=== PATIENT | female | born 1965 | race Caucasian/White ===

== ENCOUNTER 2019-03-16 15:55 | Inpatient (IN) | payer MEDICAID ==
[~2019-03-16] VITALS: Ht 160 cm; Wt 61.2 kg
--- NOTE | 2019-03-16 16:06 | NUR ---
C/O NAUSEA, GUM BLEEDING x 3 DAYS AND PALPITATIONS, PT AAOX4, -SOB, NAD NOTED, PENDING MD MAI
[2019-03-16] MEDS ORDERED: LORAZEPAM INJ 2 MG/ML VIAL ONE (16:20)
[2019-03-16] MEDS ORDERED: ONDANSETRON HCL/PF 4 MG/2 ML VIAL ONE (16:20)
[2019-03-16 16:21] LABS: BASOPHILS % (AUTO) 0.1 % (0.0-2.0); EOSINOPHILS % (AUTO) 0.1 % (0.0-6.0); HEMATOCRIT 29 % (33-45); HEMOGLOBIN 9.8 g/dL (11.5-14.8); LYMPHOCYTES # (AUTO) 0.7 /CMM (0.8-4.8); MEAN CORPUSCULAR HGB CONC 34 g/dl (31.0-36.0); MEAN CORPUSCULAR VOLUME 101 fL (82-100); MONOCYTES # (AUTO) 0.5 /CMM (0.1-1.30); MONOCYTES % (AUTO) 4.5 % (2.0-12.0); NEUTROPHILS # (AUTO) 9.8 /CMM (1.8-8.9); NEUTROPHILS % (AUTO) 89.3 % (43.0-81.0); PLATELET COUNT (AUTO) 52 /CMM (150-450); RED BLOOD CELL COUNT(AUTO) 2.86 MIL/uL (4.0-5.2)
[2019-03-16 16:29] LABS: CALCIUM, SERUM 8.1 mg/dL (8.5-10.1); POTASSIUM 3.6 mmol/L (3.5-5.1)
[2019-03-16] MEDS ORDERED: ONDANSETRON HCL/PF 4 MG/2 ML VIAL IVP ONE (16:30)
[2019-03-16] MEDS ORDERED: IV NS 0.9% 1,000 ML BAG IV ONE (16:30)
[2019-03-16] MEDS ORDERED: LORAZEPAM INJ 2 MG/ML VIAL IV ONE (16:30)
[2019-03-16 16:35] LABS: BILIRUBIN,DIRECT 2.9 mg/dL (0.0-0.2); BILIRUBIN,TOTAL 5.3 mg/dL (0.2-1.0); TOTAL PROTEIN, SERUM 7.7 g/dL (6.4-8.2)
[2019-03-16 16:56] LABS: APPEARANCE,URINE Turbid (CLEAR); BILIRUBIN,URINE LARGE (NEGATIVE); BLOOD, URINE Trace-lysed Ery/uL (NEGATIVE); COLOR,URINE Amber (YELLOW); KETONES,URINE 40 (NEGATIVE); LEUKOCYTE ESTERASE ,URINE Negative (NEGATIVE); NITRITE, URINE Negative (NEGATIVE); PROTEIN,URINE 100 mg/dl (NEGATIVE); UGLUCOSE Negative (NEGATIVE)
--- NOTE | 2019-03-16 17:00 | NUR ---
PT TO CT
[2019-03-16 17:02] LABS: BACTERIA,URINE Few /HPF (None Seen); RBC,URINE 0-2 /HPF (0-2); SQUAMOUS EPITHELIAL CELL,UR Moderate /HPF (None Seen); WBC,URINE 0-2 /HPF (0-3)
[2019-03-16] MEDS ORDERED: IV NS 0.9% 250 ML IV ONE (17:07)
[2019-03-16] MEDS ORDERED: CT SWABBABLE VALVE TRANS SET 1 EA INFUS.SET MC ONE (17:07)
[2019-03-16] MEDS ORDERED: IOHEXOL-300 100 ML VIAL IV ONE (17:07)
[2019-03-16] MEDS ORDERED: hydrALAZINE HCL IV 20 MG VIAL ONE (17:32)
[2019-03-16 17:35] LABS: LYMPHOCYTES % (MANUAL) 7 % (16-48); MONOCYTES % (MANUAL) 1 % (0-11.0); NEUTROPHILS % (MANUAL) 92 (42-76)
[2019-03-16] MEDS ORDERED: PIPERACILLIN /TAZOBACTAM 3.375 G VIAL IV ONE (18:28)
[2019-03-16] MEDS ORDERED: PIPERACILLIN /TAZOBACTAM 3.375 G in IV D5W 50 ML IV ONE (18:30)
--- NOTE | 2019-03-16 18:57 | NUR ---
PAUL PRUITT AT BEDSIDE
[2019-03-16] MEDS ORDERED: ONDANSETRON HCL/PF 4 MG/2 ML VIAL IVP PRN (19:30)
[2019-03-16] MEDS ORDERED: MAGNESIUM HYDROXIDE 30 ML UDC PO PRN (19:30)
[2019-03-16] MEDS ORDERED: Z GUARD REMEDY 2 OZ OINT TP PRN (19:30)
[2019-03-16] MEDS ORDERED: MAG HYDROX/AL HYDROX/SIMETH 30 ML UDC PO PRN (19:30)
[2019-03-16] MEDS ORDERED: ACETAMINOPHEN 325 MG TABLET PO PRN (19:30)
[2019-03-16] MEDS ORDERED: HYDROCODONE/APAP 5/325MG 1 EACH TABLET PO PRN (19:30)
--- NOTE | 2019-03-16 20:05 | NUR ---
NURSING SUP GAVE BED 320-2.
[2019-03-16 20:30] VITALS: BP 117/54
[2019-03-16 20:35] VITALS: BP 117/54
--- NOTE | 2019-03-16 20:35 | NUR ---
SENIOR CONSTRUCTION ESTIMATORRESAW CARRIAGE OPERATOR NOTES Received patient from ER via [facility] accompanied by 2 ER staff. Admitted to Tele 320-2 due to acute colitis under the service of DEAN Marcelino. Assisted to bed comfortably, noted ambulatory with unsteady gait. Admission routine done. Patient refused to removed her leggings on, preferred to wear hospital gown over own's clothes. Patient denies any discomfort at this time. On tele monitor with Tachycardia noted. With bleeding on gums, with clots noted. Bedside wall suction set up. Kept on bed clean, dry and comfortable. Call light within easy reach. Kept on bed clean, dry and comfortable. Will continue to monitor accordingly.
--- NOTE | 2019-03-16 20:36 | NUR ---
REPORT GIVEN TO DHEERAJ JOSEPH FOR ANGELA TRANSPORTED TO 3RD FLOOR
[2019-03-16] MEDS: IV NS 0.9% 1,000 ML IV PRN (20:44)
[2019-03-17] VITALS: BP 107/45
[2019-03-17] MEDS ORDERED: PIPERACILLIN /TAZOBACTAM 3.375 G in IV D5W 50 ML IV SCH ×2
[2019-03-17] MEDS ORDERED: PIPERACILLIN /TAZOBACTAM 3.375 G VIAL IV ONE ×2 (00:28→05:03)
[2019-03-17] MEDS: PIPERACILLIN /TAZOBACTAM 3.375 G in IV D5W 50 ML IV SCH ×2 (00:34→05:16)
[2019-03-17] MEDS ORDERED: LORAZEPAM 0.5 MG TABLET PO PRN (01:00)
--- NOTE | 2019-03-17 03:01 | NUR ---
SSN/SSBN WEAPONS EQUIPMENT OPERATOR NOTES Urine sample collected for ordered labs. Called laboratory, spoke to Christopher. Sample stored accordingly.
[2019-03-17 04:00] VITALS: BP 91/45
--- NOTE | 2019-03-17 06:48 | NUR ---
FLIGHT AGENT CLOSING NOTES Patient intermittently asleep. Still with gum bleeding noted. Able to ambulate to bathroom with stand by assist provided. Able to perform ADLs independently. No nausea noted within the shift. All nursing needs attended, due meds given as ordered. Kept on bed clean, dry and comfortable. Call light within easy reach. On fall and aspiration precautions. Endorsed to the next shift.
--- NOTE | 2019-03-17 06:51 | NUR ---
POWER PLANT SUPERINTENDENT NOTES On tele monitor with sinus tachycardia noted. Patient denies any discomfort at this time.
--- NOTE | 2019-03-17 07:26 | NUR ---
FELT HAT MELLOWING MACHINE OPERATOR OPENING NOTES RECEIVED PT AWAKE IN BED IN NO ACUTE SIGNS OF DISTRESS. A/O X4. ABLE TO MAKE NEEDS KNOWN, DENIES PAIN OR ANY DISCOMFORTS AT THIS TIME. ON ROOM AIR, BREATHING EVEN AND UNLABORED. ON TELE-MONITORING WITH CURRENT READING OF ST WITH HR ON 140'S, NO C/O OF CARDIAC DISTRESS VOICED. PT FOR HIDA SCAN TODAY. IV ACCESS ON RAC G#20 INTACT AND PATENT WITH IVF OF NS INFUSING AT 75ML/HR, NO S/S OF INFILTRATIONS NOTED. BED IN LOW LOCKED POSITION WITH SR UP X2. CALL LIGHT WITHIN EASY REACH OF PT. WILL CONTINUE TO MONITOR PT ACCORDINGLY.
[2019-03-17] MEDS: PANTOPRAZOLE 40 MG VIAL IV SCH (07:55)
[2019-03-17 08:00] VITALS: BP 112/55
[2019-03-17 08:03] LABS: BASOPHILS % (AUTO) 0.1 % (0.0-2.0); EOSINOPHILS % (AUTO) 0.1 % (0.0-6.0); HEMATOCRIT 22 % (33-45); HEMOGLOBIN 7.5 g/dL (11.5-14.8); LYMPHOCYTES # (AUTO) 0.4 /CMM (0.8-4.8); LYMPHOCYTES % (AUTO) 5.1 % (20.0-44.0); MEAN CORPUSCULAR HGB CONC 34 g/dl (31.0-36.0); MEAN CORPUSCULAR VOLUME 100 fL (82-100); MONOCYTES # (AUTO) 0.4 /CMM (0.1-1.30); MONOCYTES % (AUTO) 5.7 % (2.0-12.0); NEUTROPHILS # (AUTO) 6.8 /CMM (1.8-8.9); RED BLOOD CELL COUNT(AUTO) 2.18 MIL/uL (4.0-5.2); WHITE BLOOD COUNT (AUTO) 7.6 K/uL (4.3-11.0)
[2019-03-17 08:07] LABS: PLATELET COUNT (AUTO) 37 /CMM (150-450)
[2019-03-17 08:20] LABS: CALCIUM, SERUM 7.9 mg/dL (8.5-10.1); CREATININE 1.1 mg/dL (0.6-1.3); PHOSPHORUS 1.9 mg/dL (2.5-4.9); POTASSIUM 3.4 mmol/L (3.5-5.1)
[2019-03-17 08:33] LABS: MAGNESIUM 1.2 mg/dL (1.8-2.4)
[2019-03-17 08:34] LABS: THYROID STIMULATING HORMONE 3.6 uIU/mL (0.358-3.74)
--- NOTE | 2019-03-17 08:48 | NUR ---
RN NOTES RECEIVED CALL FROM LAB [facility] ANIRUDH KENYON AND INFORMED THAT PT HAS CRITICAL LOW LEVEL PLATELET 37 AND THAT PT IS ALSO TACHYCARDIC WITH HR ON 140'S. DR HAY MADE AWARE WITH ORDER TO INFORMED DR GALLOWAY. DR GALLOWAY ON UNIT AND INFORMED, SAME INFORMED HIM THAT PT HAS LOW MG 1.2 AND K 3.4. AWAITING FOR NEW ORDERS. WILL CONTINUE TO MONITOR.
[2019-03-17 09:09] LABS: LYMPHOCYTES % (MANUAL) 8 % (16-48); MONOCYTES % (MANUAL) 1 % (0-11.0); NEUTROPHILS % (MANUAL) 91 (42-76)
[2019-03-17] MEDS: IV NS 0.9% 1,000 ML IV PRN (09:13)
[2019-03-17] MEDS: Magnesium 1GM/D5W 100ML PREMIX 100 ML IV SCH ×2 (09:26→11:32)
[2019-03-17] MEDS: NEUTRA PHOS 1 POWD.PACKET PO SCH ×2 (09:31→17:32)
[2019-03-17 09:34] LABS: IRON, SERUM 125 ug/dl (50-175); TOTAL IRON BINDING CAPACITY 128 ug/dl (250-450)
[2019-03-17 09:48] LABS: FERRITIN 599 ng/mL (8-388)
--- NOTE | 2019-03-17 09:57 | NUR ---
RN NOTES PT WHEELED DOWN VIA WHEELCHAIR FOR HIDA SCAN.
[2019-03-17] MEDS ORDERED: POTASSIUM CHLORIDE 20 MEQ TAB.PRT.SR PO SCH (10:30)
[2019-03-17] MEDS ORDERED: CT SWABBABLE VALVE TRANS SET 1 EA INFUS.SET MC ONE (10:39)
[2019-03-17] MEDS ORDERED: IOHEXOL-300 100 ML VIAL IV ONE (10:39)
[2019-03-17] MEDS ORDERED: IV NS 0.9% 250 ML IV ONE (10:39)
--- NOTE | 2019-03-17 11:11 | NUR ---
NM HIDA SCAN WAS COMPLETED. TECH:RB
[2019-03-17] MEDS: PIPERACILLIN /TAZOBACTAM 3.375 G in IV D5W 100 ML IV SCH ×2 (12:41→21:13)
--- NOTE | 2019-03-17 14:37 | NUR ---
RN NOTES INFORMED DR HAY THE RESULTS OF CT CHEST, ABDOMEN AND PELVIS W/ CONTRAST. NO NEW ORDERS AT THIS TIME. WILL CONTINUE TO MONITOR.
[2019-03-17 16:00] VITALS: BP 112/48
--- NOTE | 2019-03-17 18:55 | NUR ---
MS RN CLOSING NOTES PT IN BED AWAKE WITH FAMILY AND FRIENDS AT BEDSIDE. A/O X4. ABLE TO MAKE NEEDS KNOWN. PT NOTED WITH BLEEDING GUM ON AND OFF, MD AWARE. ON ROOM AIR,TOLERATING WELL WITH NO SOB NOTED THROUGHOUT THE DAY. IV ACCESS ON RIGHT HAND G#22 INTACT AND PATENT WITH IVF OF NS INFUSING AT 125ML/HR, NO S/S OF INFILTRATIONS NOTED. ALL NEEDS AND CARE ATTENDED WELL. SAFETY MEASURES KEPT IN PLACE: BED IN LOWEST LOCKED POSITION WITH SR UP X2. CALL LIGHT WITHIN EASY REACH OF PT. WILL ENDORSE TO STAFFING OPERATIONS MANAGER NURSE FOR ANGELA.
--- NOTE | 2019-03-17 19:30 | NUR ---
MS/RN NOTES RECEIVED PT. LYING IN BED. PT. IS AWAKE, ALERT AND ORIENTED X4. BREATHING EVEN AND UNLABORED ON ROOM AIR. NO SOB, RESPIRATORY DISTRESS OR COMPLAINTS OF PAIN NOTED AT THIS TIME. PT. WITH RIGHT AC 20 GAUGE PERIPHERAL IV PRESENT, PATENT AND INTACT ADMINISTERING TO PT. NS @ 125 ML/HR. PT. WITH FAMILY MEMBERS PRESENT AT BEDSIDE. SAFETY AND BLEEDING PRECAUTIONS IMPLEMENTED AND IN PLACE. BED LOCKED AND IN LOWEST POSITION, SIDE RAILS UP X2, CALL LIGHT WITHIN REACH, WILL CONTINUE TO MONITOR.
[2019-03-17 20:00] VITALS: BP 114/54
[2019-03-18] VITALS (14 sets, daily range): BP systolic 98–118; BP diastolic 54–82
[2019-03-18] MEDS: IV NS 0.9% 1,000 ML IV PRN (04:58)
[2019-03-18] MEDS: PIPERACILLIN /TAZOBACTAM 3.375 G in IV D5W 100 ML IV SCH ×3 (04:58→19:52)
[2019-03-18 06:41] LABS: BASOPHILS % (AUTO) 0.3 % (0.0-2.0); EOSINOPHILS % (AUTO) 0.7 % (0.0-6.0); LYMPHOCYTES % (AUTO) 14.5 % (20.0-44.0); MEAN CORPUSCULAR HGB CONC 34 g/dl (31.0-36.0); MEAN CORPUSCULAR VOLUME 101 fL (82-100); MONOCYTES # (AUTO) 0.4 /CMM (0.1-1.30); MONOCYTES % (AUTO) 5.4 % (2.0-12.0); NEUTROPHILS # (AUTO) 5.6 /CMM (1.8-8.9); NEUTROPHILS % (AUTO) 79.1 % (43.0-81.0)
[2019-03-18 06:48] LABS: RED BLOOD CELL COUNT(AUTO) 1.95 MIL/uL (4.0-5.2)
[2019-03-18 06:50] LABS: HEMATOCRIT 20 % (33-45); HEMOGLOBIN 6.8 g/dL (11.5-14.8); PLATELET COUNT (AUTO) 35 /CMM (150-450)
--- NOTE | 2019-03-18 06:50 | NUR ---
MS/RN NOTES PT. IS LYING IN BED. PT. IS AWAKE, ALERT AND ORIENTED X4. BREATHING EVEN AND UNLABORED ON ROOM AIR. NO SOB, RESPIRATORY DISTRESS OR COMPLAINTS OF PAIN NOTED AT THIS TIME. PT. WITH LEFT HAND 22 GAUGE PERIPHERAL IV PRESENT, PATENT AND INTACT ADMINISTERING TO PT. NS @ 125 ML/HR. ALL PT. NEEDS MET. SAFETY AND BLEEDING PRECAUTIONS IMPLEMENTED AND IN PLACE. BED LOCKED AND IN LOWEST POSITION, SIDE RAILS UP X2, CALL LIGHT WITHIN REACH, WILL ENDORSE TO DAYSHIFT NURSE FOR CONTINUITY OF CARE.
[2019-03-18 06:54] LABS: ALBUMIN 2.4 g/dL (3.4-5.0); BILIRUBIN,TOTAL 5.2 mg/dL (0.2-1.0); CALCIUM, SERUM 7.9 mg/dL (8.5-10.1); CREATININE 1.1 mg/dL (0.6-1.3); MAGNESIUM 2.1 mg/dL (1.8-2.4); PHOSPHORUS 1.4 mg/dL (2.5-4.9); POTASSIUM 3.1 mmol/L (3.5-5.1); TOTAL PROTEIN, SERUM 6.1 g/dL (6.4-8.2)
[2019-03-18] MEDS ORDERED: ACETAMINOPHEN 325 MG TABLET PO ONE ×3 (08:00→19:30)
[2019-03-18] MEDS ORDERED: diphenhydrAMINE HCL 50 MG/ML VIAL IV ONE ×4 (08:00→19:30)
[2019-03-18] MEDS ORDERED: POTASSIUM PHOSPHATE MM 15 MMOL in IV D5W 250 ML IV SCH (08:00)
[2019-03-18 08:12] LABS: CANCER AG, 125 11.3 U/mL (0.0-38.1)
[2019-03-18 08:37] LABS: BAND % (MANUAL) 4 % (0.0-5.0); EOSINOPHILS % (MANUAL) 1 % (0-4); LYMPHOCYTES % (MANUAL) 17 % (16-48); METAMYELOCYTES % 1 % (0-0); MONOCYTES % (MANUAL) 5 % (0-11.0); NEUTROPHILS % (MANUAL) 72 (42-76)
[2019-03-18] MEDS: POTASSIUM CHLORIDE 20 MEQ TAB.PRT.SR PO SCH ×2 (08:57→11:13)
[2019-03-18] MEDS: FOLIC ACID 1 MG TABLET PO SCH (08:57)
[2019-03-18] MEDS: PANTOPRAZOLE 40 MG VIAL IV SCH (08:57)
[2019-03-18] MEDS ORDERED: LIDOCAINE 1% INJ 50 ML MDV IJ ONE (09:00)
[2019-03-18] MEDS ORDERED: K PHOS NEUTRAL 250 MG TABLET PO ONE (15:30)
--- NOTE | 2019-03-18 16:17 | NUR ---
MS/RN NOTE BENADRYL 25 MG SCHEDULED AT 0800 IS NOT ADMINISTERED DUE TO PATIENT NOT GETTING BLOOD TRANSFUSION AT THAT TIME. INSTEAD GOT AN ORDER FROM DR MATIAS NEW ORDER OF BENADRYL 25 MG IV AND ADMINISTER NOW WHEN THE BLOOD TRANSFUSION IS STARTED. READ BACK, VERIFIED. NOTED AND CARRIED OUT.
--- NOTE | 2019-03-18 16:18 | NUR ---
MS/RN NOTE TYLENOL 650MG DUE AT 0800 IS NOT ADMINISTERED DUE TO PATIENT NOT GETTING BLOOD TRANSFUSION AT 0800. 1618 THE PATIENT GETTING TRANSFUSION BUT THE PATIENT REFUSES TYLENOL. PATIENT AFEBRILE. IN STABLE CONDITION. WILL CONTINUE TO MONITOR.
--- NOTE | 2019-03-18 17:07 | NUR ---
MS/RN NOTE RN BONE MARROW TRANSPLANT JEFFERSON IS MADE AWARE THAT THE PATIENT TOLERATES CLEAR LIQUID DIET WELL. RECEIVED NEW ORDER FROM RN BONE MARROW TRANSPLANT TO UPGRADE DIET TO FULL LIQUID DIET. NOTED AND CARRIED OUT.
--- NOTE | 2019-03-18 19:00 | NUR ---
MS/RN NOTE THE PATIENT ALERT AND ORIENTED X4. IN ROOM AIR AND SATURATION IS AT 99%. RESPIRATION REGULAR AND UNLABORED. DENIES PAIN. S/P BONE MARROW BIOPSY AND ASPIRATION. NO BLEEDING AT THE SIDE. PATIENT IN NO APPARENT DISTRESS. BED LOW AND LOCKED. SIDE RAILS UP X3. CALL LIGHT WITHIN REACH. WILL ENDORSE TO PROCESS CONTROL SPECIALIST.
--- NOTE | 2019-03-18 19:05 | NUR ---
MS RN NOTE RECEIVED PT IN STABLE CONDITION, A/O X4, CURRENTLY IN BED WITH FAMILY AT BEDSIDE. NO SIGNS OF SOB OR DISTRESS, NO C/O PAIN. L HAND #[address] WITH IVF INFUSING, TOLERATING WELL. ALL CURRENT NEEDS ATTENDED TO. BED LOW, LOCKED, UPPER RAILS UP, AND CALL LIGHT WITHIN REACH. WILL CONT. TO MONITOR.
--- NOTE | 2019-03-18 19:10 | NUR ---
MS/RN NOTE STAT CBC PER DR MATIAS. NOTED AND CARRIED OUT.
[2019-03-18] MEDS: MORPHINE SULFATE INJ 2 MG/ML DISP.SYRIN IV PRN (19:13)
[2019-03-18] MEDS ORDERED: PHYTONADIONE INJ 10 MG/1 ML AMPUL SQ ONE (19:30)
[2019-03-18 19:58] LABS: BASOPHILS % (AUTO) 0.5 % (0.0-2.0); EOSINOPHILS % (AUTO) 0.8 % (0.0-6.0); HEMATOCRIT 22 % (33-45); HEMOGLOBIN 7.7 g/dL (11.5-14.8); LYMPHOCYTES # (AUTO) 0.8 /CMM (0.8-4.8); MEAN CORPUSCULAR HGB CONC 34 g/dl (31.0-36.0); MEAN CORPUSCULAR VOLUME 100 fL (82-100); MONOCYTES # (AUTO) 0.5 /CMM (0.1-1.30); MONOCYTES % (AUTO) 9.2 % (2.0-12.0); NEUTROPHILS # (AUTO) 4.3 /CMM (1.8-8.9); NEUTROPHILS % (AUTO) 75.5 % (43.0-81.0); RED BLOOD CELL COUNT(AUTO) 2.24 MIL/uL (4.0-5.2); WHITE BLOOD COUNT (AUTO) 5.7 K/uL (4.3-11.0)
[2019-03-18 20:03] LABS: PLATELET COUNT (AUTO) 35 /CMM (150-450)
[2019-03-18 20:59] LABS: BAND % (MANUAL) 5 % (0.0-5.0); EOSINOPHILS % (MANUAL) 1 % (0-4); LYMPHOCYTES % (MANUAL) 15 % (16-48); MONOCYTES % (MANUAL) 8 % (0-11.0); NEUTROPHILS % (MANUAL) 71 (42-76)
--- NOTE | 2019-03-18 21:15 | NUR ---
MS RN NOTE NOTIFIED YURI FROM LAB THAT DOES NOT HAVE ANY MORE BLOOD BANK STICKERS. PER YURI, WE JUST NEED TO BRING THE NUMBERS FOR ANY OTHER BLOOD THAT NEEDS TO BE PICKED UP.
[2019-03-19] VITALS (15 sets, daily range): BP systolic 94–171; BP diastolic 52–79
[2019-03-19] MEDS: IV NS 0.9% 1,000 ML IV PRN (00:33)
[2019-03-19] MEDS: PIPERACILLIN /TAZOBACTAM 3.375 G in IV D5W 100 ML IV SCH ×3 (03:54→20:35)
[2019-03-19 05:07] LABS: *SPE A/G RATIO 0.7 (0.7-1.7); *SPE ALBUMIN 2.8 g/dL (2.9-4.4); *SPE ALPHA-1-GLOBULIN 0.3 g/dL (0.0-0.4); *SPE ALPHA-2-GLOBULIN 0.7 g/dL (0.4-1.0); *SPE BETA GLOBULIN 0.8 g/dL (0.7-1.3); *SPE GLOBULIN, TOTAL 3.9 g/dL (2.2-3.9); *SPE M-SPIKE 0.5 g/dL (Not Observed); *SPEGAMMA GLOBULIN 2.1 g/dL (0.4-1.8)
--- NOTE | 2019-03-19 06:19 | NUR ---
MS RN NOTE NEW ORDER FROM DR. العلي TYLENOL 650 MG PO Q6H PRN. ORDER CARRIED OUT.
--- NOTE | 2019-03-19 06:22 | NUR ---
MS RN NOTE PT REMAINS IN STABLE CONDITION, A/O X4, CURRENTLY IN BED RESTING. NO SIGNS OF SOB OR DISTRESS, NO C/O PAIN. L HAND #[address] WITH IVF INFUSING, TOLERATING WELL. ALL CURRENT NEEDS ATTENDED TO. BED LOW, LOCKED, UPPER RAILS UP, AND CALL LIGHT WITHIN REACH. WILL CONT. TO MONITOR AND ENDORSE TO NEXT SHIFT FOR ANGELA.
[2019-03-19] MEDS: ACETAMINOPHEN 325 MG TABLET PO PRN ×4 (06:25→22:40)
[2019-03-19 06:32] LABS: BASOPHILS % (AUTO) 0.4 % (0.0-2.0); EOSINOPHILS % (AUTO) 1.4 % (0.0-6.0); LYMPHOCYTES # (AUTO) 0.5 /CMM (0.8-4.8); LYMPHOCYTES % (AUTO) 13.2 % (20.0-44.0); MEAN CORPUSCULAR HGB CONC 35 g/dl (31.0-36.0); MEAN CORPUSCULAR VOLUME 100 fL (82-100); MONOCYTES # (AUTO) 0.2 /CMM (0.1-1.30); MONOCYTES % (AUTO) 6.9 % (2.0-12.0); NEUTROPHILS # (AUTO) 2.7 /CMM (1.8-8.9); NEUTROPHILS % (AUTO) 78.1 % (43.0-81.0); WHITE BLOOD COUNT (AUTO) 3.4 K/uL (4.3-11.0)
[2019-03-19 06:37] LABS: BILIRUBIN,DIRECT 2.6 mg/dL (0.0-0.2); BILIRUBIN,TOTAL 5.3 mg/dL (0.2-1.0); CREATININE 0.9 mg/dL (0.6-1.3); PHOSPHORUS 2.3 mg/dL (2.5-4.9); POTASSIUM 2.9 mmol/L (3.5-5.1)
[2019-03-19 06:44] LABS: RED BLOOD CELL COUNT(AUTO) 1.89 MIL/uL (4.0-5.2)
[2019-03-19 06:45] LABS: HEMOGLOBIN 6.6 g/dL (11.5-14.8)
--- NOTE | 2019-03-19 06:45 | NUR ---
MS RN NOTE LAB CALLED WITH CRITICAL HGB AND HCT. 6.09/25. DR. العلي NOTIFIED WITH NEW ORDER FOR 1 UNIT PRBCs. WILL CARRY OUT AND ENDORSE TO NEXT SHIFT FOR ANGELA.
[2019-03-19 06:46] LABS: HEMATOCRIT 19 % (33-45); PLATELET COUNT (AUTO) 29 /CMM (150-450)
--- NOTE | 2019-03-19 07:00 | NUR ---
MS RN NOTE AWAITING RETURN MESSAGE FROM DR. العلي IN REGARDS TO PLATELET OF 29.
--- NOTE | 2019-03-19 07:22 | NUR ---
RN OPENING NOTE PT WAS RECEIVED IN BED AT LOWEST AND LOCKED POSITION WITH SIDE RAILS UP X2, A/O X4 BREATHING EVEN AND UNLABORED ON RA, NO S/S OF ANY DISTRESS OR PAIN NOTED AT THIS TIME, IV IS PATENT AND INTACT, PER NIGHT RN PLAN FOR PT TO RECEIVE 1 UNIT OF PRBC DUE TO AN H/H OF 6.09/25 AND NO ORDER YET REGARDING PLATELET WHICH WAS AT 29 THIS AM, SAFETY PRECAUTIONS IN PLACE, CALL LIGHT IN REACH, WILL MONITOR ACCORDINGLY
[2019-03-19] MEDS: FOLIC ACID 1 MG TABLET PO SCH (08:01)
[2019-03-19] MEDS: PANTOPRAZOLE 40 MG VIAL IV SCH (08:01)
[2019-03-19 08:07] LABS: HIV SCRN 4G wRFX Non Reactive (Non Reactive)
[2019-03-19 08:41] LABS: BAND % (MANUAL) 1 % (0.0-5.0); EOSINOPHILS % (MANUAL) 3 % (0-4); LYMPHOCYTES % (MANUAL) 9 % (16-48); MONOCYTES % (MANUAL) 9 % (0-11.0); NEUTROPHILS % (MANUAL) 78 (42-76)
[2019-03-19] MEDS: POTASSIUM CHLORIDE 20 MEQ TAB.PRT.SR PO SCH ×3 (09:09→12:04)
--- NOTE | 2019-03-19 10:12 | NUR ---
RN NOTE PER PT TO BE TRANSFUSED 1 UNIT OF PRBC AND 1 UNIT OF PLATELET
[2019-03-19] MEDS ORDERED: K PHOS NEUTRAL 250 MG TABLET PO ONE (13:00)
--- NOTE | 2019-03-19 13:37 | NUR ---
RN NOTE BLOOD TRANSFUSION FINISHED AT THIS TIME, NO S/S OF ANY DISTRESS OR PAIN NOTED. WILL CONTINUE TO MONITOR
--- NOTE | 2019-03-19 16:22 | NUR ---
RN NOTE PLATELET DONE AT THIS TIME, NO S/S OF ANY DISTRESS OR PAIN, WILL CONTINUE TO MONITOR
[2019-03-19 17:31] LABS: BASOPHILS % (AUTO) 0.4 % (0.0-2.0); EOSINOPHILS % (AUTO) 0.9 % (0.0-6.0); HEMATOCRIT 23 % (33-45); HEMOGLOBIN 7.9 g/dL (11.5-14.8); LYMPHOCYTES # (AUTO) 0.5 /CMM (0.8-4.8); LYMPHOCYTES % (AUTO) 12.2 % (20.0-44.0); MEAN CORPUSCULAR HGB CONC 34 g/dl (31.0-36.0); MEAN CORPUSCULAR VOLUME 98 fL (82-100); MONOCYTES # (AUTO) 0.4 /CMM (0.1-1.30); MONOCYTES % (AUTO) 9.9 % (2.0-12.0); NEUTROPHILS # (AUTO) 3.4 /CMM (1.8-8.9); NEUTROPHILS % (AUTO) 76.6 % (43.0-81.0); PLATELET COUNT (AUTO) 52 /CMM (150-450); RED BLOOD CELL COUNT(AUTO) 2.36 MIL/uL (4.0-5.2); WHITE BLOOD COUNT (AUTO) 4.5 K/uL (4.3-11.0)
[2019-03-19] MEDS ORDERED: ACETAMINOPHEN 325 MG TABLET PO ONE (18:00)
[2019-03-19] MEDS ORDERED: diphenhydrAMINE HCL 50 MG/ML VIAL IV ONE (18:00)
--- NOTE | 2019-03-19 18:09 | NUR ---
RN NOTE H/H NOW NOTED TO BE 7.9/23 AND PLATELET LEVEL OF 52, DR. MATIAS AWARE
--- NOTE | 2019-03-19 18:10 | NUR ---
RN NOTE PER SHE WILL ORDER 4 FFP TO BE TRANSFUSED TOTAL AND TO CANCEL THE PLATELET ORDER SHE PUT IN EARLIER Addendum: 03/19/19 at 1813 by SARAHI WOODS RN PLT 52 NOW
--- NOTE | 2019-03-19 18:25 | NUR ---
RN CLOSING NOTE PT IN BED AT LOWEST AND LOCKED POSITION WITH SIDE RAILS UP X2, A/O X4 BREATHING EVEN AND UNLABORED WITH NO DISTRESS OR PAIN NOTED AT THIS TIME, IV IS PATENT AND INTACT, PER PLAN FOR PT TO RECEIVE 4 FFP, SAFETY PRECAUTIONS IN PLACE, CALL LIGHT IN REACH, FAMILY AT BEDSIDE, ALL NEEDS ATTENDED TO, WILL ENDORSE TO NIGHT RN FOR ANGELA.
--- NOTE | 2019-03-19 19:30 | NUR ---
MS RN OPENING NOTES PATIENT RESTING IN BED, LOW SEMI-BARRAZA'S POSITION. FAMILY PRESENT AT THE BEDSIDE. PATIENT IS A&O X4 ON ROOM AIR. IV PRESENT ON LEFT HAND, SIZE 22 WITH NS RUNNING AT 125 ML/HR. IV ALSO PRESENT ON RIGHT WRIST, SIZE 20, HEP LOCK. NO SIGNS OF BLEEDING GUMS. NO SIGNS OF ACUTE RESPIRATORY DISTRESS OR SOB. BED SET IN LOWEST POSITION AND LOCKED. CALL LIGHT WITHIN REACH. WILL CONTINUE TO MONITOR.
[2019-03-19] MEDS: MORPHINE SULFATE INJ 2 MG/ML DISP.SYRIN IV PRN (20:37)
--- NOTE | 2019-03-19 20:42 | NUR ---
RN NOTES COMPLAINEDE
--- NOTE | 2019-03-19 20:43 | NUR ---
RN NOTES COMPLAINED OF BACK PAIN- MORPHINE 1 MG IV GIVEN ORDERED, V/S STABLE
--- NOTE | 2019-03-19 22:30 | NUR ---
MS RN NOTES PATIENT PREPARED TO RECEIVE 1 UNIT OF PLASMA. VITAL SIGNS - BP: 107/64 HR: 95 RR: 18 TEMP: 99.1. IV SITE ON RIGHT WRIST, SIZE 20, INTACT AND PATENT. PLASMA CHECKED AT THE BEDSIDE WITH CO-RN. WILL MONITOR PATIENT FOR THE NEXT 15 MINUTES.
--- NOTE | 2019-03-19 22:43 | NUR ---
RN NOTES COMPLAINED OF LIGHT PAIN ON HER BACK AND ASKED FOR TYLENOL - TYLENOL 650MG PO GIVEN ORDERED
--- NOTE | 2019-03-19 22:45 | NUR ---
MS RN NOTES VITAL SIGNS - BP: 109/67 HR: 85 RR: 18 TEMP: 98.2. NO S/S OF SOB OR S/S OF TRANSFUSION REACTION. PATIENT CALL LIGHT WITHIN REACH. WILL CONTINUE TO MONITOR.
--- NOTE | 2019-03-19 23:52 | NUR ---
MS RN NOTES 1 UNIT OF PLASMA COMPLETED. VITAL SIGNS - BP: 107/58 HR: 97 RR: 18 TEMP: 99.0. NO S/S OF ACUTE RESPIRATORY DISTRESS OR SOB. NO S/S OF TRANSFUSION REACTION. PATIENT CALL LIGHT WITHIN REACH. WILL CONTINUE TO MONITOR.
[2019-03-20] VITALS (13 sets, daily range): BP systolic 92–116; BP diastolic 49–68
--- NOTE | 2019-03-20 01:06 | NUR ---
MS RN NOTES SECOND BAG OF PLASMA (1 UNIT) RUNNING. PLASMA CHECKED AND VERIFIED WITH CO-RN. VITAL SIGNS - BP: 97/49 HR: 89 RR: 18 TEMP: 97.9. WILL MONITOR PATIENT FOR THE NEXT 15 MINUTES FOR S/S OF TRANSFUSION REACTION.
--- NOTE | 2019-03-20 01:25 | NUR ---
MS RN NOTES NO S/S OF ACUTE RESPIRATORY DISTRESS OR SOB. NO S/S OF TRANSFUSION REACTION. VITAL SIGNS - BP: 99/56 HR: 88 RR: 18 TEMP: 99.0. PATIENT CALL LIGHT WITHIN REACH. WILL CONTINUE TO MONITOR.
--- NOTE | 2019-03-20 02:40 | NUR ---
MS RN NOTES PATIENT COMPLAINING OF SLIGHT DISCOMFORT WHEN BREATHING ON INHALATION. NO S/S OF ACUTE RESPIRATORY DISTRESS OR SOB. VITAL SIGNS - BP: 113/62 HR: 93 RR: 18 SPO2: 97 ON ROOM AIR TEMP: 98.7. SUPPLEMENTAL 2L OF O2 NC STARTED. PATIENT ALSO COMPLAINING OF SLIGHT BURNING ON RIGHT IV SIGHT. SLIGHT SWELLING ON RIGHT WRIST PRESENT. IV RUNNING PLASMA SWITCHED TO LEFT HAND IV, SIZE 22. PATIENT CALL LIGHT WITHIN REACH. WILL CONTINUE TO MONITOR.
--- NOTE | 2019-03-20 03:30 | NUR ---
MS RN NOTES SECOND BAG OF PLASMA COMPLETE. NO S/S OF TRANSFUSION REACTION. VITAL SIGNS - BP: 110/60 HR: 89 RR: 18 TEMP: 98.7.
--- NOTE | 2019-03-20 04:17 | NUR ---
MS RN NOTES THIRD BAG OF PLASMA RUNNING. VITAL SIGNS: BP: 98/58 HR: 84 RR: 18 TEMP: 98.9. WILL MONITOR FOR THE NEXT 15 MINUTES FOR S/S OF TRANSFUSION REACTION.
--- NOTE | 2019-03-20 05:25 | NUR ---
RN NOTES 3RD BAG OF PLASMA FINISHED, NO REACTION NOTED, V/S STABLE
[2019-03-20] MEDS: IV NS 0.9% 1,000 ML IV PRN (05:31)
[2019-03-20] MEDS: PIPERACILLIN /TAZOBACTAM 3.375 G in IV D5W 100 ML IV SCH ×3 (05:31→19:45)
--- NOTE | 2019-03-20 05:45 | NUR ---
RN NOTES PT. REQUESTED THAT IF SHE CAN REST FIRST AND LET THE DAYSHIFT NURSE GAVE THE LAST BAG OF PLASMA.. WILL ENDORSED TO DAYSHIFT NURSE
--- NOTE | 2019-03-20 06:33 | NUR ---
MS RN CLOSING NOTES PATIENT RESTING IN BED. ALERT & ORIENTED X 4. NO S/S OF ACUTE RESPIRATORY DISTRESS OR SOB. NO COMPLAINTS OF PAIN AT THE MOMENT. IV ON LEFT HAND, SIZE 22, WITH NS RUNNING AT 25 ML/HR. WILL ENDORSE TO DAY SHIFT NURSE TO CONTINUE LAST BAG OF PLASMA. BED IN SUPINE POSITION, LOW, AND LOCKED. CALL LIGHT WITHIN REACH.
[2019-03-20] MEDS ORDERED: LORAZEPAM INJ 2 MG/ML VIAL IV PRN (09:00)
[2019-03-20] MEDS: PANTOPRAZOLE 40 MG VIAL IV SCH (09:30)
[2019-03-20] MEDS: FOLIC ACID 1 MG TABLET PO SCH (09:30)
[2019-03-20] MEDS: THIAMINE HCL 100 MG TABLET PO SCH (09:30)
[2019-03-20 11:54] LABS: BASOPHILS % (AUTO) 0.3 % (0.0-2.0); EOSINOPHILS % (AUTO) 0.9 % (0.0-6.0); HEMATOCRIT 22 % (33-45); HEMOGLOBIN 7.5 g/dL (11.5-14.8); LYMPHOCYTES # (AUTO) 0.5 /CMM (0.8-4.8); MEAN CORPUSCULAR HGB CONC 34 g/dl (31.0-36.0); MEAN CORPUSCULAR VOLUME 99 fL (82-100); MONOCYTES # (AUTO) 0.5 /CMM (0.1-1.30); MONOCYTES % (AUTO) 11.1 % (2.0-12.0); NEUTROPHILS # (AUTO) 3.7 /CMM (1.8-8.9); NEUTROPHILS % (AUTO) 77.7 % (43.0-81.0); RED BLOOD CELL COUNT(AUTO) 2.25 MIL/uL (4.0-5.2); WHITE BLOOD COUNT (AUTO) 4.7 K/uL (4.3-11.0)
[2019-03-20 12:14] LABS: CALCIUM, SERUM 8.3 mg/dL (8.5-10.1); CREATININE 0.7 mg/dL (0.6-1.3); PHOSPHORUS 2.1 mg/dL (2.5-4.9); POTASSIUM 2.9 mmol/L (3.5-5.1)
[2019-03-20 12:18] LABS: PLATELET COUNT (AUTO) 38 /CMM (150-450)
--- NOTE | 2019-03-20 13:10 | NUR ---
/JAKE NOTE DEAN JEFFERSON IS MADE AWARE OF LABS RESULTS AND RECEIVED NEW ORDER OF NEUTRA PHOS PACKET (2 PACKETS) X1 AND K DUR 60 MEQ X1. THE ORDERS ARE READ BACK, VERIFIED. NOTED AND CARRIED OUT. Addendum: 03/20/19 at 1315 by CON GUSTAFSON RN NAOMI NOTE ALSO, RECEIVED ORDER OF CHEST X-RAY DUE TO PAIN ON LEFT SIDE OF CHEST WHEN TAKING DEEP BREATH.
[2019-03-20 13:13] LABS: EOSINOPHILS % (MANUAL) 1 % (0-4); LYMPHOCYTES % (MANUAL) 6 % (16-48); MONOCYTES % (MANUAL) 8 % (0-11.0); NEUTROPHILS % (MANUAL) 85 (42-76)
[2019-03-20] MEDS: POTASSIUM CHLORIDE 20 MEQ TAB.PRT.SR PO SCH ×3 (13:26→16:18)
[2019-03-20] MEDS ORDERED: NEUTRA PHOS 1 POWD.PACKET PO ONE (13:30)
--- NOTE | 2019-03-20 18:30 | NUR ---
MS/RN NOTE THE PATIENT TOLERATED PLASMA TRANSFUSION WELL. NO S/S INFILTRATIONS. PATIENT WITH NO PAIN IN LUNGS AT ANY TIME. THE PATIENT IN NO APPARENT DISTRESS.
--- NOTE | 2019-03-20 19:10 | NUR ---
MS/RN NOTE THE PATIENT ALERT AND ORIENTED X4. IN ROOM AIR AND SATURATION IS AT 97%. DENIES SOB. RESPIRATION REGULAR AND UNLABORED. DENIES ANY TYPE OF PAIN. THE PATIENT IS IN NO APPARENT DISTRESS. LEFT HAND G 22 PATENT AND SALINE LOCKED AT THIS TIME PER PATIENT`S REQUEST. BED LOW AND LOCKED. SIDE RAILS UP X2. CALL LIGHT WITHIN REACH. WILL ENDORSE TO ORDNANCE KEEPER.
--- NOTE | 2019-03-20 19:30 | NUR ---
MS RN OPENING NOTES PATIENT AWAKE AND RESTING IN BED. FAMILY PRESENT AT BEDSIDE. PATIENT A&O X4. ON ROOM AIR. IV ON RIGHT WRIST, SIZE 20, INTACT & PATENT, HEP LOCKED. IV ON LEFT WRIST, SIZE 22, INTACT & PATENT. NO S/S OF BLEEDING GUMS. NO S/S OF ACUTE RESPIRATORY DISTRESS OR SOB. PATIENT COMPLAINS OF SLIGHT BACK PAIN. BED POSITIONED IN SEMI FOWLERS, SET IN LOWEST POSITION, AND LOCKED. CALL LIGHT WITHIN REACH. WILL CONTINUE TO MONITOR.
[2019-03-20] MEDS: ACETAMINOPHEN 325 MG TABLET PO PRN (19:44)
--- NOTE | 2019-03-20 19:46 | NUR ---
MS RN NOTES PATIENT COMPLAINED OF SLIGHT BACK PAIN RATED 4/10. PER PATIENT'S REQUEST, ADMINISTERED PRN TYLENOL 650 MG PO. VITAL SIGNS - BP: 116/66 HR: 104 RR: 18 TEMP: 99.3. PATIENT CALL LIGHT WITHIN REACH. WILL CONTINUE TO MONITOR.
[2019-03-20] MEDS: MORPHINE SULFATE INJ 2 MG/ML DISP.SYRIN IV PRN (21:59)
--- NOTE | 2019-03-20 21:59 | NUR ---
MS RN NOTES PATIENT COMPLAINING OF SHARP UPPER BACK PAIN RATED 10/10. PER PATIENT'S REQUEST, ADMINISTERED 1MG OF MORPHINE PRN. VITAL SIGNS - BP: 105/53 HR: 102 RR: 18. CALL LIGHT WITHIN REACH. WILL CONTINUE TO MONITOR EFFECTIVENESS OF PAIN MEDICATION.
[2019-03-21] MEDS: PIPERACILLIN /TAZOBACTAM 3.375 G in IV D5W 100 ML IV SCH ×3 (03:47→20:14)
[2019-03-21 05:10] VITALS: BP 102/61
[2019-03-21 06:27] LABS: BASOPHILS % (AUTO) 0.3 % (0.0-2.0); EOSINOPHILS % (AUTO) 1.1 % (0.0-6.0); HEMATOCRIT 21 % (33-45); HEMOGLOBIN 7.3 g/dL (11.5-14.8); LYMPHOCYTES # (AUTO) 1.1 /CMM (0.8-4.8); LYMPHOCYTES % (AUTO) 21.1 % (20.0-44.0); MEAN CORPUSCULAR HGB CONC 34 g/dl (31.0-36.0); MEAN CORPUSCULAR VOLUME 98 fL (82-100); MONOCYTES # (AUTO) 0.8 /CMM (0.1-1.30); MONOCYTES % (AUTO) 14.6 % (2.0-12.0); NEUTROPHILS # (AUTO) 3.4 /CMM (1.8-8.9); NEUTROPHILS % (AUTO) 62.9 % (43.0-81.0); RED BLOOD CELL COUNT(AUTO) 2.17 MIL/uL (4.0-5.2); WHITE BLOOD COUNT (AUTO) 5.4 K/uL (4.3-11.0)
--- NOTE | 2019-03-21 06:33 | NUR ---
MS RN CLOSING NOTES PATIENT AWAKE AND RESTING IN BED, SUPINE POSITION. NO S/S OF BLEEDING GUMS. NO S/S OF ACUTE RESPIRATORY DISTRESS. NO COMPLAINTS OF PAIN AT THIS TIME. IV ON LEFT HAND, SIZE 22, INTACT & PATENT, ZOSYN RUNNING AT 25 ML/HR. BED SET IN LOWEST POSITION & LOCKED W/ UPPER SIDE RAILS UP. CALL LIGHT WITHIN REACH. WILL ENDORSE TO DAY SHIFT NURSE TO PLAN OF CARE
[2019-03-21 06:43] LABS: CALCIUM, SERUM 8.2 mg/dL (8.5-10.1); CREATININE 0.7 mg/dL (0.6-1.3); POTASSIUM 3.5 mmol/L (3.5-5.1)
[2019-03-21 07:05] LABS: PLATELET COUNT (AUTO) 41 /CMM (150-450)
[2019-03-21] MEDS: MORPHINE SULFATE INJ 2 MG/ML DISP.SYRIN IV PRN ×2 (07:13→21:39)
--- NOTE | 2019-03-21 07:15 | NUR ---
MS RN OPENING NOTES RECEIVED PT IN BED,AWAKE, A/O X4. PT TOLERATING RA, WITH NO ACUTE RESPIRATORY DISTRESS NOTED. PT STATING IN PAIN WITH 11/16, NIGHT NURSE/CARLOS JUST GAVE A DOSE OF PRN PAIN MEDICINE. ALSO, DENIES ANY CONCERNS OR QUESTIONS AT THIS TIME. IVF NS AT75ML/HR TO LEFT HANG G22, INTACT AND FLUID INFUSING WELL. PIV TO RIGHT WRIST G20, FLUSHED WITH NS, INTACT AND OPERATIONAL. PT KEPT COMFORTABLE. CALL LIGHT AND FLUIDS KEPT WITHIN REACH. PT'S BED IN LOWEST, LOCKED POSITION WITH SRX3. WILL CONTINUE PLAN OF CARE.
--- NOTE | 2019-03-21 07:16 | NUR ---
RN NOTES COMPLAINED OF BACK PAIN- MORPHINE 1MG IV GIVEN ORDERED, V/S STABLE
[2019-03-21 07:49] LABS: EOSINOPHILS % (MANUAL) 3 % (0-4); LYMPHOCYTES % (MANUAL) 20 % (16-48); MONOCYTES % (MANUAL) 13 % (0-11.0); NEUTROPHILS % (MANUAL) 64 (42-76)
[2019-03-21] MEDS: PANTOPRAZOLE 40 MG VIAL IV SCH (07:57)
[2019-03-21 08:00] VITALS: BP 109/67
[2019-03-21] MEDS: FOLIC ACID 1 MG TABLET PO SCH (08:11)
[2019-03-21] MEDS: THIAMINE HCL 100 MG TABLET PO SCH (08:11)
--- NOTE | 2019-03-21 10:55 | NUR ---
manager support services consult requested by Magdy Sawyer DNP for pt being uninsured and pt needing to follow up with oncologist. Pt is a 53 year old female who was admitted to [facility] for colitis, generalized weakness. Pt was laying down in her bed with her belongings at bedside. Pt is alert and oriented x 4 (person, place, time, situation). SW inquired about health insurance needs for after discharge health care follow up services. Pt states that she prefers her daughter, Jazzy Sanches [[phone]] to speak with SW regarding this. Pt states she will alert SW when her daughter returns to the hospital for a follow-up SW consultation. SW provided pt with [place] Application for Health Insurance, which is an application to see what insurance choices pt may qualify for, including: free or low-cost insurance from [employer], affordable private health insurance plans, and help paying for health insurance. No other services needed at this time. SW available if needed.
[2019-03-21 16:00] VITALS: BP 115/59
[2019-03-21] MEDS: ACETAMINOPHEN 325 MG TABLET PO PRN (16:49)
--- NOTE | 2019-03-21 19:08 | NUR ---
MS RN CLOSING NOTES PT IN BED, AWAKE, A/O X4. PT TOLERATING RA, WITH NO ACUTE RESPIRATORY DISTRESS NOTED. PT DENIES ANY PAIN OR DISCOMFOR AT THIS TIME. PIV LEFT HAND G22 SL, AND RIGHT WRIST G20 SL, BOTH FLUSHED WITH NS, INTACT AND OPERATIONAL. PT KEPT COMFORTABLE. ALL NEEDS AND CARE ATTENDED. CALL LIGHT AND FLUIDS KEPT WITHIN REACH. PT'S BED IN LOWEST, LOCKED POSITION WITH SRX3. WILL ENDORSE TO INCOMING PARTS DRIVER NURSE FOR ANGELA.
--- NOTE | 2019-03-21 19:30 | NUR ---
MS RN OPENING NOTE RECEIVED PATIENT IN BED. A/O X4. TOLERATING ROOM AIR. RESPIRATIONS ARE EVEN AND UNLABORED. NO S/S SOB NOTED. DENIES PAIN AT THIS TIME. IN NO APPARENT DISTRESS. IV ACCESS IN RIGHT WRIST #20 RUNNING NS @75ML/HR. BED IS LOW AND LOCKED, SIDE RAILS UP X2, HOB ELEVATED IN SEMI FOWLERS. CALL LIGHT WITHIN REACH. FAMILY AT BEDSIDE. WILL CONTINUE TO MONITOR.
[2019-03-21 20:00] VITALS: BP 99/58
--- NOTE | 2019-03-21 21:39 | NUR ---
MS RN NOTE ADMINISTERED PRN MORPHINE 1MG FOR PAIN 8/10 IN BACK/SHOULDER AND INCISION SITE. VS 117/69 HR 96. WILL CONTINUE TO MONITOR. MEDICATION WASTED WITH MARGO JOSEPH. WASTE PLACED IN PHARMACEUTICAL WASTE BIN, WITNESSED BY MARGO JOSEPH.
[2019-03-22 04:00] VITALS: BP 125/68
[2019-03-22] MEDS: PIPERACILLIN /TAZOBACTAM 3.375 G in IV D5W 100 ML IV SCH ×3 (04:17→20:08)
--- NOTE | 2019-03-22 06:43 | NUR ---
MS RN CLOSING NOTE PATIENT IN BED. A/O X4. REMAINS TOLERATING ROOM AIR. RESPIRATIONS ARE EVEN AND UNLABORED. NO SOB NOTED THROUGHOUT SHIFT. NO DISTRESS NOTED. IV ACCESS MAINTAINED IN L HAND #22 RUNNING NS @75ML/HR. BED REMAINS LOW AND LOCKED, SIDE RAILS UP X2, HOB ELEVATED IN SEMI FOWLERS. CALL LIGHT WITHIN REACH. WILL ENDORSE TO NEXT SHIFT
[2019-03-22 07:16] LABS: BASOPHILS % (AUTO) 0.5 % (0.0-2.0); EOSINOPHILS % (AUTO) 1.4 % (0.0-6.0); HEMATOCRIT 22 % (33-45); HEMOGLOBIN 7.5 g/dL (11.5-14.8); LYMPHOCYTES # (AUTO) 0.9 /CMM (0.8-4.8); LYMPHOCYTES % (AUTO) 17.7 % (20.0-44.0); MEAN CORPUSCULAR HGB CONC 34 g/dl (31.0-36.0); MEAN CORPUSCULAR VOLUME 98 fL (82-100); MONOCYTES # (AUTO) 0.9 /CMM (0.1-1.30); MONOCYTES % (AUTO) 17.7 % (2.0-12.0); NEUTROPHILS # (AUTO) 3.3 /CMM (1.8-8.9); NEUTROPHILS % (AUTO) 62.7 % (43.0-81.0); PLATELET COUNT (AUTO) 51 /CMM (150-450); RED BLOOD CELL COUNT(AUTO) 2.25 MIL/uL (4.0-5.2); WHITE BLOOD COUNT (AUTO) 5.3 K/uL (4.3-11.0)
--- NOTE | 2019-03-22 07:24 | NUR ---
RN OPENING NOTE PT WAS RECEIVED IN BED AT LOWEST AND LOCKED POSITION WITH SIDE RAILS UP X2, A/O X4 BREATHING EVEN AND UNLABORED ON RA, NO S/S OF ANY DISTRESS OR PAIN NOTED AT THIS TIME, IV IS PATENT AND INTACT, AMBULATORY, SAFETY PRECAUTIONS IN PLACE, CALL LIGHT IN REACH, WILL MONITOR ACCORDINGLY
[2019-03-22 07:26] LABS: CREATININE 0.6 mg/dL (0.6-1.3); MAGNESIUM 1.8 mg/dL (1.8-2.4); POTASSIUM 3.2 mmol/L (3.5-5.1)
[2019-03-22 08:00] VITALS: BP 123/69
[2019-03-22] MEDS: FOLIC ACID 1 MG TABLET PO SCH (08:01)
[2019-03-22] MEDS: THIAMINE HCL 100 MG TABLET PO SCH (08:01)
[2019-03-22] MEDS: PANTOPRAZOLE 40 MG VIAL IV SCH (08:01)
[2019-03-22 08:44] LABS: ALBUMIN 2.4 g/dL (3.4-5.0); BILIRUBIN,DIRECT 2.5 mg/dL (0.0-0.2); BILIRUBIN,TOTAL 4.5 mg/dL (0.2-1.0); TOTAL PROTEIN, SERUM 6.3 g/dL (6.4-8.2)
[2019-03-22] MEDS: POTASSIUM CHLORIDE 20 MEQ POWDER PACKET PO SCH ×3 (08:52→11:06)
[2019-03-22 16:00] VITALS: BP 104/63
--- NOTE | 2019-03-22 18:25 | NUR ---
RN CLOSING NOTE PT IN BED AT LOWEST AND LOCKED POSITION WITH SIDE RAILS UP X2, A/O X4 BREATHING EVEN AND UNLABORED WITH NO S/S OF ANY DISTRESS OR PAIN AT THIS TIME, IV IS PATENT AND INTACT, FAMILY PRESENT AT BEDSIDE, SAFETY PRECAUTIONS IN PLACE, CALL LIGHT IN REACH, ALL NEEDS ATTENDED TO THROUGHOUT SHIFT, WILL ENDORSE TO NIGHT RN FOR ANGELA.
[2019-03-22 19:30] VITALS: BP 123/71
--- NOTE | 2019-03-22 19:36 | NUR ---
MS RN NOTES PATIENT IN BED AWAKE, ALERT AND ORIENTED X 4. BREATHING EVEN AND UNLABORED ON ROOM AIR. DENIES ACUTE PAIN, NO ACUTE RESPIRATORY DISTRESS. IV ON LEFT HAND #22G RUNNING ON 75ML/HR. SHOWS NO SIGNS OF INFILTRATION, NO REDNESS. SAFETY PRECAUTIONS ON PLACE. BED IN LOWEST POSITION LOCKED AND CALL LIGHT KEPT WITHIN REACH. WILL CONTINUE TO MONITOR.
[2019-03-22 20:00] VITALS: BP 123/71
[2019-03-22] MEDS: MORPHINE SULFATE INJ 2 MG/ML DISP.SYRIN IV PRN (20:08)
--- NOTE | 2019-03-22 20:08 | NUR ---
MS RN NOTES PATIENT COMPLAINED OF PAIN RATING 8/10. GIVEN PRN MORPHINE ON 2007. WILL CONTINUE TO MONITOR.
[2019-03-23] MEDS: PIPERACILLIN /TAZOBACTAM 3.375 G in IV D5W 100 ML IV SCH ×3 (03:18→20:16)
[2019-03-23] MEDS: IV NS 0.9% 1,000 ML IV PRN (03:31)
--- NOTE | 2019-03-23 06:34 | NUR ---
MS RN NOTES PATIENT ASLEEP IN BED, ALERT AND ORIENTED X 4. BREATHING EVEN AND UNLABORED ON ROOM AIR. DENIES ACUTE PAIN, NO ACUTE RESPIRATORY DISTRESS. IV ON LEFT HAND #22G RUNNING NS. SHOWS NO SIGNS OF INFILTRATION, NO REDNESS. ALL MEDICATIONS GIVEN DUE. SAFETY PRECAUTIONS ON PLACE. BED IN LOWEST POSITION LOCKED AND CALL LIGHT KEPT WITHIN REACH. WILL ENDORSE TO ONCOMING NURSE.
[2019-03-23] MEDS: PANTOPRAZOLE 40 MG VIAL IV SCH (07:45)
[2019-03-23 08:00] VITALS: BP 127/78
[2019-03-23] MEDS: THIAMINE HCL 100 MG TABLET PO SCH (08:01)
[2019-03-23] MEDS: FOLIC ACID 1 MG TABLET PO SCH (08:01)
[2019-03-23] MEDS: ACETAMINOPHEN 325 MG TABLET PO PRN (09:39)
[2019-03-23 16:00] VITALS: BP 105/61
--- NOTE | 2019-03-23 19:20 | NUR ---
MS RN OPENING NOTES Patient is currently resting in bed with family at bedside. A/O x4, stable on RA breathing even and unlabored. No signs of acute distress or no complaints of pain or discomfort. IV located on L hand #22 running NS @75ml/hr. Safety precautions in place with bed in lowest position, breaks on, and side rails up x2. Will continue to monitor.
[2019-03-23 20:00] VITALS: BP 114/68
[2019-03-23] MEDS: MORPHINE SULFATE INJ 2 MG/ML DISP.SYRIN IV PRN (20:05)
[2019-03-24] MEDS: PIPERACILLIN /TAZOBACTAM 3.375 G in IV D5W 100 ML IV SCH ×2 (03:57→11:56)
[2019-03-24] MEDS: IV NS 0.9% 1,000 ML IV PRN (03:57)
--- NOTE | 2019-03-24 06:23 | NUR ---
MS RN CLOSING NOTES Patient is resting in bed A/Ox4 able to make needs known and ambulatory. Stable on RA with breathing even and unlabored. No current complaints of pain or discomfort and no acute distress noted. IV located on L hand #22 running NS @ 75 ml/ hr. All needs were attended to throughout shift. Safety precautions in place with bed in lowest position, locked, and call light within reach. Will endorse to oncoming shift about ANGELA.
[2019-03-24] MEDS: PANTOPRAZOLE 40 MG VIAL IV SCH (06:31)
[2019-03-24 06:47] LABS: BASOPHILS % (AUTO) 0.9 % (0.0-2.0); EOSINOPHILS % (AUTO) 1.9 % (0.0-6.0); HEMATOCRIT 22 % (33-45); HEMOGLOBIN 7.5 g/dL (11.5-14.8); LYMPHOCYTES # (AUTO) 0.8 /CMM (0.8-4.8); MEAN CORPUSCULAR HGB CONC 34 g/dl (31.0-36.0); MEAN CORPUSCULAR VOLUME 98 fL (82-100); MONOCYTES # (AUTO) 0.7 /CMM (0.1-1.30); MONOCYTES % (AUTO) 19.2 % (2.0-12.0); NEUTROPHILS # (AUTO) 1.9 /CMM (1.8-8.9); PLATELET COUNT (AUTO) 77 /CMM (150-450); RED BLOOD CELL COUNT(AUTO) 2.22 MIL/uL (4.0-5.2); WHITE BLOOD COUNT (AUTO) 3.5 K/uL (4.3-11.0)
[2019-03-24 07:05] LABS: CALCIUM, SERUM 8.1 mg/dL (8.5-10.1); CREATININE 0.6 mg/dL (0.6-1.3); POTASSIUM 3.6 mmol/L (3.5-5.1)
--- NOTE | 2019-03-24 07:36 | NUR ---
MS/RN Patient recived AOx 4, able to response all stimulu. Patient denies pain or any disconfort, intact IV site, respiratory even and unlabored, skin is warm and dry to touch. Call light within reach, will continue to monitor.
[2019-03-24 08:00] VITALS: BP 115/66
[2019-03-24] MEDS: THIAMINE HCL 100 MG TABLET PO SCH (09:19)
[2019-03-24] MEDS: FOLIC ACID 1 MG TABLET PO SCH (09:19)
[2019-03-24] MEDS ORDERED: CHLO25CA22 PO (10:23)
[2019-03-24] MEDS ORDERED: THIA100T88 PO (10:26)
--- NOTE | 2019-03-24 15:40 | NUR ---
MS/RN Patient left facility accompanied by staff and son with wheel chair to the private car, pt denies any pain or discomfort, stable in condition.
== END 2019-03-24 15:30 | disposition home or self-care (01) | DRG 245 ==
LOC: ER 16:01 → TELE 20:07 → MED 03-17 09:25
PROVIDERS: ADMIT Registered Nurse; ATTEND Nurse Practitioner Acute Care
PROC: 30233P1 Transfusion of Nonautologous Frozen Red Cells into Peripheral Vein, Percutaneous Approach (ICD-10-PCS; principal; 2019-03-18)
PROC: 30233R1 Transfusion of Nonautologous Platelets into Peripheral Vein, Percutaneous Approach (ICD-10-PCS; principal; 2019-03-18)
PROC: 07DR3ZX Extraction of Iliac Bone Marrow, Percutaneous Approach, Diagnostic (ICD-10-PCS; principal; 2019-03-18)
PROC: 30233K1 Transfusion of Nonautologous Frozen Plasma into Peripheral Vein, Percutaneous Approach (ICD-10-PCS; principal; 2019-03-18)
DX: K51.00 Ulcerative (chronic) pancolitis without complications (principal); I21.A1 Myocardial infarction type 2; D61.818 Other pancytopenia; N17.9 Acute kidney failure, unspecified; D69.6 Thrombocytopenia, unspecified; E83.39 Other disorders of phosphorus metabolism; D68.9 Coagulation defect, unspecified; D47.2 Monoclonal gammopathy; E83.42 Hypomagnesemia; A08.4 Viral intestinal infection, unspecified; E86.0 Dehydration; K76.0 Fatty (change of) liver, not elsewhere classified; D53.9 Nutritional anemia, unspecified; F41.9 Anxiety disorder, unspecified; R74.0 Nonspecific elevation of levels of transaminase and lactic acid dehydrogenase [LDH]; K06.8 Other specified disorders of gingiva and edentulous alveolar ridge; E05.90 Thyrotoxicosis, unspecified without thyrotoxic crisis or storm; R00.0 Tachycardia, unspecified; R16.2 Hepatomegaly with splenomegaly, not elsewhere classified; E87.6 Hypokalemia
CPT/HCPCS: 36415; 71045-TC; 76705-TC; 77075-TC; 78226; 80048-TC; 80053-TC; 80061-TC; 80074; 80076-TC; 81000-TC; 82232; 82247-TC; 82248-TC; 82378; 82728-TC; 83010; 83540-TC; 83615-TC; 83690-TC; 83735-TC; 84100-TC; 84155; 84165; 84439-TC; 84443-TC; 84484-TC; 84702-TC; 85025-TC; 85045-TC; 85378-TC; 85385-TC; 85610-TC; 85730-TC; 86301; 86304; 86850-TC; 86921-TC; 87045-TC; 87081-TC; 89055; 93307-TC; 93970-TC; 97110-TC; 97116-TC; 97530-TC; A9537; C9113; G0378; J0360; J1200; J2060; J2270; J2405; J2543; J3430; J3475; J3490; J7030; J7040; J7050; J7060; P9016-BL; P9017-BL; P9034-BL; Q9967